=== PATIENT | male | born 1960 | race Caucasian/White ===

== ENCOUNTER → 2016-10-31 | Outpatient (CLI) | payer BC ==
[~2016-10-31] MED LIST: CELEBREX 200 M200 M1 PO; LISINOPRIL10 MG PO; MOBIC7.5 MG PO; NAPROSYN500 MG PO; NORCO 10-325 T1 EACH PO; NORCO 5-325 TA1 EACH PO; NUCYNTA50 MG PO; OXYCODONE HCL15 MG PO
== END ==
LOC: RAD 06:57
DX: M47.814 Spondylosis without myelopathy or radiculopathy, thoracic region (principal); M54.9 Dorsalgia, unspecified; M48.06 Spinal stenosis, lumbar region

== ENCOUNTER → 2017-06-14 | Outpatient (CLI) | payer BC | LOC: CAT 09:53 | DX: J32.0 Chronic maxillary sinusitis (principal); J32.1 Chronic frontal sinusitis; J32.3 Chronic sphenoidal sinusitis ==

== ENCOUNTER → 2017-11-09 | Outpatient (CLI) | payer BC ==
[~2017-11-09] VITALS: Ht 180.3 cm; Wt 77.9 kg
[~2017-11-09] MED LIST changes: +ATORVASTATIN CA40 MG PO; +CYMBALTA30 MG PO; +METHADONE HCL5 MG PO; +OXYCODONE HCL10 MG PO; +VITAMIN B-12500 MCG PO; +VITAMIN E400 UNIT PO; +VITAMINC500 PO
--- NOTE | ~2017-11-09 | HPC ---
[facility] [place] [address] PAIN MANAGEMENT CONSULTATION Name: CHRISTEL JAEGER Room #: REG [facility] Rachell.#: [id number] Admission: 11/09/17 Attend Phys: Josef Garcia DO Discharge: Date of : 58 Report #: [id number] THIS REPORT FOR: //name// CC: Matt Garcia The patient is a very pleasant 57-year-old gentleman, prior seen in the pain clinic 09/10/2015. The patient was somewhat lost to follow up. At that time, we had diagnosed the patient with symptomatic axial back pain, lumbar radiculopathy, component of lumbar spondylosis without myelopathy, requiring complex medication management. He has been habituated fairly high dose opiates, oxycodone 20 mg up to 5 a day. I recommended rotation to methadone and wean. He returns to pain clinic today. He has been followed by Dr. Estrada España. He has been well managed, has weaned down to methadone 5 mg typically 1 tablet in the morning and rarely 2, oxycodone 10 mg IR typically at bedtime. He was referred back for consideration for any further interventions or medication management, which may help. The patient again notes pain is twofold, consistent belt line pain, exacerbated with standing, walking, with axial loading, episodic radicular pain, which is relatively nominal with occasional spasm in his foot and leg, mostly noted at bedtime. Second pain is mid back pain, which is described as a "stiff" sensation. States stretching helps some. 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 Notes pain seems to be exacerbated with this. The patient rates pain as 3 on a VAS. It seemed to be worse throughout the day. He has tried muscle relaxants in the past, but these unfortunately caused untoward sedation. Did seek chiropractic help, but this seemed to exacerbate symptoms. REVIEW OF SYSTEMS: Complete review of systems was again reviewed. Medication list was reconciled. Generally healthy gentleman, treated for hypertension with lisinopril. Does have occasional gastroesophageal reflux. Otherwise, 12-point review of systems is noncontributory (negative). PHYSICAL EXAMINATION: Shows 180 cm, 78 kilogram gentleman with a BMI of 24 kilograms per meter squared. Blood pressure is 134/93, pulse 75, respiration 16. Alert and oriented to person, place and time, judged to be a reasonable historian. Upper extremity strength is generally symmetric, rises from chair using armrest. Diffuse tenderness noted in the thoracic area, actually around the T6-T8 area at the inferior aspect of the scapula. Muscle spasms noted in the thoracic paravertebral muscles. No discrete trigger points are noted. Gait [facility] [address] [place] [address] PAIN MANAGEMENT CONSULTATION Name: CHRISTEL JAEGER Room #: REG CLMaxi Maldonado#: [id number] Admission: 11/09/17 Attend Phys: Josef Garcia DO Discharge: Date of : 58 Report #: [id number] is mildly antalgic. He is able to walk on his toes and heels. Lower extremity strength is generally symmetric, about 4/5 to all muscle groups tested. Patellar and Achilles reflexes are preserved. Straight leg raise negative. Diffuse tenderness across the low back in the L5 area. SI joints are unremarkable. Bienvenido test is negative. Rotation sidebending of the lumbar spine is limited, although flexion is good about 90 degrees. There are no recent diagnostic studies available for evaluation at this time. ASSESSMENT: Axial back pain, component of lumbar and lumbosacral spondylosis without myelopathy. Primary concern for myofascial pain in the thoracic area requiring complex medication management. RECOMMENDATIONS: 1. Continue current use of methadone 5 mg 1-2 and oxycodone immediate release 10 mg at bedtime. He is appropriately managed by Dr. Estrada España. 2. Given myofascial pain component, we talked about starting an SSRI/norepinephrine reuptake inhibitor. To this end, I wrote for 30 days of Cymbalta at 30 mg. Four week release prescription for Cymbalta 30 mg b.i.d. Will follow up in 2 months for reevaluation. Refer to physical therapy for home exercises, stretching exercises (trisha chi ?) for daily use. 3. Thoracolumbar x-rays today. We will review those findings within 2 months. Thank you for allowing me to participate in the patient's care. Will follow up in 2 months and I will keep you abreast of his progress. Discharged in good stable condition after approximately 35-minute visit was spent counseling the patient, reviewing interval health history. <ELECTRONICALLY SIGNED> By: Josef Garcia DO 11/10/17 0944 [id number] Josef Garcia DO /nt
[2017-11-09 09:55] VITALS: BP 134/93
== END ==
LOC: PAIN 11-06 06:06
DX: M47.897 Other spondylosis, lumbosacral region (principal); M54.6 Pain in thoracic spine; Z79.899 Other long term (current) drug therapy

== ENCOUNTER → 2017-11-24 | Outpatient (CLI) | payer BC | LOC: RAD 07:03 | DX: M47.894 Other spondylosis, thoracic region (principal); M48.07 Spinal stenosis, lumbosacral region; M51.34 Other intervertebral disc degeneration, thoracic region ==

== ENCOUNTER 2017-12-01 03:31 | Emergency (ER) | payer BC ==
[~2017-12-01] VITALS: Ht 180.3 cm; Wt 78.0 kg
--- NOTE | ~2017-12-01 | EKG ---
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 : 1960 Requested By: Helga Patricio Order Number: [id number] MD: Lorenzo Bassett Measurements Intervals [place] Rate: 86 P: 45 [place]: 164 QRS: 58 QRSD: 104 T: 39 QT: 355 QTc: 425 Interpretive Statements Sinus rhythm Minimal ST elevation, consider early repolarization Compared to ECG 01/15/2008 05:13:24 No significant change was found Electronically Signed On 12-01-2017 17:22:45 CDT by Lorenzo Bassett [email or web address] <ELECTRONICALLY SIGNED> By: Lorenzo Bassett MD, [facility] 12/01/17 1722 6 6 Lorenzo Bassett MD, FACC /EPI
[2017-12-01 04:17] LABS: ABSOLUTE NEUTROPHILS 2.1 thou/uL (1.4-8.2); BASOPHILS 1.7 % (0.0-2.0); EOSINOPHILS 8.4 % (0.0-3.0); HEMATOCRIT 41.5 % (42.0-52.0); HEMOGLOBIN 14.4 gm/dL (14.0-18.0); LYMPHOCYTES 34.2 % (24.0-44.0); MCHC 34.6 g/dL (28.0-37.0); MCV 92.6 fL (80.0-100.0); MONOCYTES 11.5 % (1.0-8.0); PLATELET COUNT 265 thou/uL (150-400); POLYS 44.2 % (36.0-66.0); RBC 4.48 mil/uL (4.50-6.00); RDW 12.5 % (10.5-14.5); WBC 4.8 thou/uL (4.0-11.0)
[2017-12-01 04:20] LABS: ANION GAP 8 mmol/L (7-16); BUN 7 mg/dL (7-18); CALCIUM 9.2 mg/dL (8.5-10.1); CHLORIDE 101 mmol/L (98-107); CO2 26 mmol/L (21-32); CREATININE 0.8 mg/dL (0.7-1.3); GLUCOSE 96 mg/dL (74-106); POTASSIUM 4.2 mmol/L (3.5-5.1); SODIUM 135 mmol/L (136-145)
[2017-12-01 04:28] LABS: TROPONIN-I < 0.04 ng/mL (<0.06)
== END 2017-12-01 04:54 | disposition home or self-care (01) ==
LOC: ER 03:31
PROVIDERS: Emergency Medicine
DX: R04.0 Epistaxis (principal); R07.9 Chest pain, unspecified

== ENCOUNTER 2018-12-11 09:19 | Emergency (ER) | payer BC, OTHER ==
[~2018-12-11] VITALS: Ht 180.3 cm; Wt 72.6 kg
[~2018-12-11 09:19] MED LIST changes: +INDOMETHACIN 5050 M1 PO; +VITAMIN D1000 UNI1 PO
[2018-12-11 09:55] LABS: ABSOLUTE NEUTROPHILS 3.7 thou/uL (1.4-8.2); BASOPHILS 0.7 % (0.0-2.0); EOSINOPHILS 0.4 % (0.0-3.0); HEMATOCRIT 43.5 % (42.0-52.0); HEMOGLOBIN 14.9 gm/dL (14.0-18.0); LYMPHOCYTES 13.9 % (24.0-44.0); MCH 31.8 pg (26.0-34.0); MCHC 34.3 g/dL (28.0-37.0); MCV 92.6 fL (80.0-100.0); PLATELET COUNT 173 thou/uL (150-400); RDW 12.7 % (10.5-14.5); WBC 4.8 thou/uL (4.0-11.0)
[2018-12-11 09:59] LABS: CALCIUM 9.7 mg/dL (8.5-10.1); CREATININE 0.8 mg/dL (0.7-1.3); MAGNESIUM 1.7 mg/dL (1.8-2.4); POTASSIUM 3.6 mmol/L (3.5-5.1)
[2018-12-11] MEDS ORDERED: ZOFRAN ODT4 MG PO (10:36)
[2018-12-11 10:50] VITALS: BP 141/85
== END 2018-12-11 10:50 | disposition home or self-care (01) ==
LOC: ER 09:19
PROVIDERS: Emergency Medicine
DX: R25.1 Tremor, unspecified (principal); R11.0 Nausea; I10 Essential (primary) hypertension; E78.00 Pure hypercholesterolemia, unspecified; E78.5 Hyperlipidemia, unspecified; F17.210 Nicotine dependence, cigarettes, uncomplicated

== ENCOUNTER 2020-07-01 07:35 | Inpatient (IN) | payer OTHER ==
[~2020-07-01] VITALS: Ht 180.3 cm; Wt 83.5 kg
[2020-07-01] VITALS (7 sets, daily range): BP systolic 118–147; BP diastolic 71–89
[~2020-07-01 07:35] MED LIST changes: +ZOFRAN ODT4 MG PO
[2020-07-01] MEDS ORDERED: ZENPEP DR 10,01 EACH PO (08:07)
[2020-07-01] MEDS ORDERED: PROTONIX40 M2 PO (08:07)
[2020-07-01] MEDS ORDERED: PAROXETINE HCL10 MG PO (08:08)
[2020-07-01 08:11] LABS: HEMATOCRIT 36.9 % (42.0-52.0); HEMOGLOBIN 12.2 gm/dL (14.0-18.0); MCH 36.5 pg (26.0-34.0); MCHC 33.2 g/dL (28.0-37.0); MCV 109.9 fL (80.0-100.0); PLATELET COUNT 147 thou/uL (150-400); RBC 3.35 mil/uL (4.50-6.00); WBC 4.4 thou/uL (4.0-11.0)
--- NOTE | 2020-07-01 08:11 | EKG ---
[facility] [address] [address] [place] [address] ELECTROCARDIOGRAM REPORT Name: CHRISTEL JAEGER Room #: PRE [facility]..#: [id number] Admission: Attend Phys: Discharge: Date of : 58 Report #: [id number] THIS REPORT FOR: cc: Matt España MD, Stanley P. 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
[2020-07-01 08:20] LABS: ANION GAP 6 mmol/L (7-16); BUN 3 mg/dL (7-18); CALCIUM 8.6 mg/dL (8.5-10.1); CHLORIDE 102 mmol/L (98-107); CO2 27 mmol/L (21-32); CREATININE 0.9 mg/dL (0.7-1.3); GLUCOSE 130 mg/dL (74-106); POTASSIUM 3.8 mmol/L (3.5-5.1); SODIUM 135 mmol/L (136-145)
[2020-07-01 08:26] LABS: APTT 26.2 Seconds (24.5-32.8); D-DIMER 2.91 ug/mLFEU (0.19-0.50); INR 1.2; PROTIME 12.2 Seconds (9.3-11.4)
[2020-07-01 08:29] LABS: ALBUMIN 2.2 g/dL (3.4-5.0); MAGNESIUM 1.9 mg/dL (1.8-2.4); SGOT 135 U/L (15-37); SGPT 63 U/L (30-65); TOTAL PROTEIN 6.3 g/dL (6.4-8.2); TROPONIN-I <0.06 ng/mL (<0.06)
[2020-07-01 09:42] LABS: ABSOLUTE NEUTROPHILS 3.3 thou/uL (1.4-8.2); ANISOCYTOSIS SLIGHT; MACROCYTES 1+; PLATELET ESTIMATE NORMAL
[2020-07-01 13:39] LABS: % SATURATION 30 % (20-39); IRON 34 ug/dL (65-175); TIBC 115 ug/dL (250-450)
--- NOTE | 2020-07-01 13:53 | NUR ---
Chart reviewed and case discussed with the care team. Pt admited per his pcp, Dr. Millan recommendation and recent lab work. GI workup in progress for anasarca/alcoholic hepatitis. The lives with family and was working and indep prior to admission. He has health ins on file for followup care. Will provide local resources for ethol tx program in his dc instructions and follow along should dc planning needs arise.
--- NOTE | 2020-07-01 14:42 | 2DMMODE ---
[facility] [place] [address] 2 D/M-MODE ECHOCARDIOGRAM Name: HEIDECHRISTEL DULCE Room #: 205-P ADM IN M.R.#: [id number] Admission: 07/01/20 Attend Phys: Bran Valencia Discharge: Date of : 58 Report #: [id number] THIS REPORT FOR: cc: Matt España MD, Stanley P. MD Santiago, Patrick MD [facility] ~ APPROVED REPORT Study performed: 07/01/2020 13:31:41 EXAM: Comprehensive 2D, Doppler, and color-flow Echocardiogram Patient Location: Bedside Room #: 205 Status: routine BSA: 2.04 HR: 93 bpm BP: 147/89 mmHg Rhythm: NSR Other Information Study Quality: Good Indications ANASARCA. Hx: HTN. 2D Dimensions RVDd: 31.39 mm IVSd: 9.03 (7-11mm) LVOT Diam: 24.31 (18-24mm) LVDd: 52.20 mm PWd: 7.17 (7-11mm) LVDs: 38.75 (25-40mm) Aortic Root: 29.55 mm IVC: 17.00 mm Volumes Left Atrial Volume (Systole) Single Plane 4CH: 30.19 mL Single Plane 2CH: 59.83 mL LA ESV Index: 23.70 mL/m2 Aortic Valve AoV Peak Ralph.: 1.68 m/s AO Peak Gr.: 11.26 mmHg LVOT Max P.43 mmHg LVOT Max V: 1.45 m/s HARPREET Vmax: 4.01 cm2 [facility] [address] [place] [address] 2 D/M-MODE ECHOCARDIOGRAM Name: CHRISTEL JAEGER Room #: 205-P [facility] IN ..#: [id number] Admission: 07/01/20 Attend Phys: Bran Arnold Discharge: Date of : 58 Report #: [id number] Mitral Valve E/A Ratio: 0.8 MV Decel. Time: 163.18 ms MV E Max Ralph.: 0.70 m/s MV A Ralph.: 0.92 m/s MV PHT: 47.32 ms IVRT: 73.82 ms Pulmonary Valve PV Peak Ralph.: 1.38 m/s PV Peak Gr.: 7.60 mmHg Pulmonary Vein P Vein S: 0.66 m/s P Vein A: 0.36 m/s P Vein D: 0.40 m/s P Vein A Dur.: 147.6 msec P Vein S/D Ratio: 1.65 Tricuspid Valve TR Peak Ralph.: 2.19 m/s TR Peak Gr.: 19.13 mmHg PA Pressure: 24.00 mmHg Left Ventricle The left ventricle is normal size. There is normal left ventricular wall thickness. The left ventricular systolic function is normal. LVEF is 55-60%. Grade I - abnormal relaxation pattern. Right Ventricle The right ventricle is normal size. The right ventricular systolic function is normal. Atria The left atrium size is normal. The right atrium size is normal. Aortic Valve The aortic valve is normal in structure. No aortic regurgitation is present. There is no aortic valvular stenosis. Mitral Valve The mitral valve is normal in structure. There is no mitral valve regurgitation noted. No evidence of mitral valve stenosis. Tricuspid Valve The tricuspid valve is normal in structure. Trace tricuspid regurgitation. Estimated PAP 24mmHg. [facility] [employer] [place] [address] 2 D/M-MODE ECHOCARDIOGRAM Name: ISAKATHYNELSONCHRISTEL Room #: 205-P [facility] IN M.R.#: [id number] Admission: 07/01/20 Attend Phys: Bran Arnold Discharge: Date of : 58 Report #: [id number] Pulmonic Valve The pulmonary valve is normal in structure. There is no pulmonic valvular regurgitation. Great Vessels The aortic root is normal in size. The ascending aorta is normal in size. IVC is normal in size and collapses >50% with inspiration. Pericardium There is no pericardial effusion. <Conclusion> Normal left atrial size and the wall thickness Ejection fraction 55% Grade 1 diastolic dysfunction Normal right ventricle size and function No significant valvular dysfunction detected Mild tricuspid valve insufficiency Pulmonary artery systolic pressure estimated at 24 mmHg No pericardial effusion <ELECTRONICALLY SIGNED> By: Blas Batres MD, FACC 11/18/20 144 144 144 Blas Batres MD, FACC /INF
--- NOTE | 2020-07-01 17:16 | NUR ---
ARRIVED FROM ED VIA W/C, ALERT AND ORIENTED, VSS, AND AFEBRILE. POC INITIATED AND WILL CONTINUE TO MONITOR.
[2020-07-02 05:26] VITALS: BP 112/71
--- NOTE | 2020-07-02 05:56 | NUR ---
ASSUMED CARE OF PT FROM DAY SHIFT PT ALERT AND ORIENTED X4 GAIT STEADY SPEECH CLEAR, PAIN MEDICATION GIVEN FOR RIGHT LEG PAIN. CIWA 2 X2 . AFTER 2400 PT FOUND UNSTEADY WITH TREMOR IN BATHROOM URINATING ON THE FLOOR, PT ASSISTED BACK TO BED CIWA 11 BED ALARM ON YELLOW SLIPPERS AND YELLOW ARM PLACED ON. BED ALARM ON FOR SAFETY. CIWA 11 MEDICATION GIVEN PER PROTOCOL. HEART 140'S WHEN UP. PT RESTING AFTER SECOND DOSE OF ATIVAN . WILL CONTINUE TO MONITOR AND REPORT CHANGES.
[2020-07-02 07:09] LABS: HAV IgM AB (ANTI-HAV IgM) Negative (Negative); HEPATITIS B SURFACE AG Negative (Negative); HEPATITIS C VIRUS AB <0.1 (0.0-0.9)
[2020-07-02 07:37] VITALS: BP 117/73
[2020-07-02 11:33] LABS: ALBUMIN 1.9 g/dL (3.4-5.0); DIRECT BILIRUBIN 2.8 mg/dL (<0.1-0.2); TOTAL BILIRUBIN 3.4 mg/dL (0.2-1.0); TOTAL PROTEIN 5.6 g/dL (6.4-8.2)
[2020-07-02 13:35] LABS: CLARITY CLOUDY; COLOR YELLOW; SOURCE ABDOMINAL; TOTAL VOLUME 62 mL
[2020-07-02 13:56] LABS: BF NUCLEATED CELLS 194 /mm3; BF RBC 259 /mm3
[2020-07-02 14:07] LABS: IgG 1245 mg/dL (603-1613)
[2020-07-02 14:10] VITALS: BP 125/72
[2020-07-02 14:51] LABS: BF MACROPHAGE 55 %; BF NEUTROPHILS 20 %
[2020-07-02 15:52] VITALS: BP 137/80
[2020-07-02 20:34] VITALS: BP 162/80
[2020-07-03 04:41] VITALS: BP 124/69
--- NOTE | 2020-07-03 06:18 | NUR ---
pt resting on and off thru the shift c/o of 2 liquid stools, incont on the way to bathroom, vss, no c/o pain, reminded pt we still need urine sample, will con't to monitor per ppoc.
[2020-07-03 06:27] LABS: ALBUMIN 2.1 g/dL (3.4-5.0); AMYLASE 67 U/L (25-115); ANION GAP 9 mmol/L (7-16); BUN 3 mg/dL (7-18); CALCIUM 8.4 mg/dL (8.5-10.1); CHLORIDE 100 mmol/L (98-107); CO2 30 mmol/L (21-32); CREATININE 0.9 mg/dL (0.7-1.3); GLUCOSE 84 mg/dL (74-106); LIPASE 124 U/L (73-393); SGOT 112 U/L (15-37); SGPT < 6 U/L (30-65); SODIUM 139 mmol/L (136-145); TOTAL BILIRUBIN < 0.1 mg/dL (0.2-1.0); TOTAL PROTEIN 5.7 g/dL (6.4-8.2)
[2020-07-03 08:03] VITALS: BP 105/68
[2020-07-03] MEDS ORDERED: LASIX 40 MG TAB40 M1 PO (09:09)
[2020-07-03] MEDS ORDERED: ALDACTONE50 MG PO (09:09)
[2020-07-03 09:14] LABS: SOURCE ABDOMINAL
[2020-07-03] MEDS ORDERED: CHLORDIAZEPOXIDE5 M2 PO (09:16)
[2020-07-03] MEDS ORDERED: MAGNESIUM250 M1 PO (09:19)
[2020-07-03] MEDS ORDERED: COLCHICINE0.6 M1 PO (09:48)
[2020-07-03 10:07] LABS: BODY FLUID ALBUMIN 0.9 g/dL (Not Estab.); BODY FLUID AMYLASE 44 U/L (()); BODY FLUID GLUCOSE 111 mg/dL (()); BODY FLUID LDH 119 IU/L (()); BODY FLUID PROTEIN 1.6 g/dL (())
--- NOTE | 2020-07-03 13:47 | NUR ---
RECEIVED PT'S CARE AROUND 0725; PT. ON BED; RESTING WITH EYES CLOSED; EQUAL CHEST RISING NOTICED; SR ON THE MONITOR; DURING AM ASSESSMENT PT. AOX4; C/O PAIN OVER RLE DUE TO GOUT; SCHEDULED MEDICATION GIVEN; CIWA PROTOCOL PERFORMED; CHECK CHARTING; POTASSIUM AND MAGNESIUM REPLACED; D/C ORDERS ON PLACED; PT. NOTIFIED AND EDUCATED ABOUT D/C PROCESS; ST. UNDERSTANDING; EDUCATED ABOUT FALL PRECAUTIONS; NEEDS TO BE REMAINED; ST ON THE MONITOR DURING AMBULATION; PAGED PHYSICIAN X2; NO CALL BACK; WAITING TECHNICAL SUPPORT 1 SOFTWARE ENGINEER BACK; ASSESSMENT CHARGED; FOLLOWING POC; WILL WORK D/C ORDERS;
[2020-07-03 14:00] VITALS: BP 147/89
[2020-07-03 14:07] LABS: ANA INTERPRETATION Negative (Negative)
[2020-07-03] MEDS ORDERED: CEFUROXIME500 MG PO (14:29)
[2020-07-03 15:45] LABS: URINE BILIRUBIN 1+ (Negative); URINE BLOOD NEGATIVE (Negative); URINE CLARITY CLEAR; URINE COLOR YELLOW; URINE GLUCOSE-RANDOM* NEGATIVE (Negative); URINE KETONES NEGATIVE (Negative); URINE LEUKOCYTES NEGATIVE (Negative); URINE NITRITE NEGATIVE (Negative); URINE PROTEIN (DIPSTICK) NEGATIVE (Negative); URINE UROBILINOGEN 0.2 E.U./dl (0.2-1.0)
[2020-07-03 15:46] LABS: ICTOTEST (BILI CONFIRMATORY) Negative (Negative)
[2020-07-03 15:55] LABS: AMP/METHAMP Negative (Negative); BACTERIA 1-9 Few /HPF (None Seen); BARBITURATES Negative (Negative); BENZODIAZEPINES POSITIVE (Negative); CASTS None Seen /LPF (None Seen); COCAINE Negative (Negative); CRYSTALS None Seen /LPF (None Seen); METHADONE Negative (Negative); OPIATES Negative (Negative); PCP Negative (Negative); SQUAMOUS None Seen /LPF (0-3); URINE RBC None Seen /HPF (0-2); URINE WBC None Seen /HPF (0-5)
[2020-07-03 17:44] VITALS: BP 125/87
[2020-07-03 20:36] VITALS: BP 113/69
[2020-07-03 23:11] VITALS: BP 113/69
[2020-07-04 04:00] VITALS: BP 100/72
[2020-07-04 04:50] VITALS: BP 108/68
--- NOTE | 2020-07-04 05:37 | NUR ---
ASSUMED PT CARE AT THE CHNAGE OF SHIFT, PT IS AWAKE, ALERT AND ORIENTED, SR ON THE MONITOR, ASSESSMENTS CHARTED, VSS, DENIES HAVING CONCERNS, SLEPT WELL, WILL PASS ON REPORT
[2020-07-04 07:30] VITALS: BP 107/63
[2020-07-04] MEDS ORDERED: CARDIZEM CD 18180 M3 PO (08:28)
--- NOTE | 2020-07-04 12:30 | NUR ---
RECEIVED PT'S CARE AROUND 0730; PT. ON BED; AOX4; DURING AM ASSESSMENT NO C/O PAIN; AM MEDICATIONS GIVEN; PER REPORT NO ST DURING THE EVENING DURING EXERTION; D/C ORDERS ON PLACED; PER PHYSICIAN OK TO D/C DURING ROUNDING; SR ON THE MONITOR; ASSESSMENT CHARGED; FOLLOWING POC; WILL WORK ON D/C ORDERS;
[2020-07-04 12:39] VITALS: BP 147/89
--- NOTE | 2020-07-07 11:07 | PATH ---
[facility] [address] [place] [address] PATHOLOGY RPT PROCEDURE Name: CHRISTEL JAEGER Room #: 205-P DIS IN M.R.#: [id number] Admission: 07/01/20 Date of : 58 Discharge: 07/04/20 Report #: [id number] Path Case #: [id number] Note [facility] Accession Number: [id number] TESTS RESULT FLAG UNITS REF RANGE LAB Clinician Provided Cytology Information No. of containers..01 Other (Miscellaneous) Source: 01 N DIAGNOSIS: 02 N NEGATIVE FOR MALIGNANT EPITHELIAL CELLS. MESOTHELIAL CELLS ARE PRESENT. THIS INTERPRETATION INCLUDES EVALUATION OF A CELL BLOCK. PAUCICELLULAR SPECIMEN WITH OCCASIONAL MESOTHELIAL CELLS SHOWING REACTIVE AND DEGENERATIVE CHANGES ADMIXED WITH SCATTERED PREDOMINANTLY CHRONIC INFLAMMATORY CELLS, PROTEINACEOUS FLUID AND BLOOD / PERIPHERAL BLOOD ELEMENTS. Pathologist ICD10: 02 R18.8 Signed out by: 02 Yolanda Diop MD, Pathologist NPI- [id number] Performed by: Volodymyr Anaya, Bedspread Seamer ([facility]) Gross description: 01 22ML, YELLOW, 1TP 1CB /LCS 07/03/2020 0751 Local FLAG LEGEND: L-Low Normal,H-High Normal,LL-Alert Low,HH-Alert High <-Panic Low,>-Panic High,A-Abnormal,AA-Critical Abnormal Performed at: [address] [facility] [address] [place] [address] Beau Shen MD, [address] [address] Maryse Ginag MD, Specimen Comment: A courtesy copy of this report has been sent to [phone] Specimen Comment: Report sent to Performed at: [address], [place], [place] [id number] MD Beau Shen MD Phone: [phone]
== END 2020-07-04 14:21 | disposition home or self-care (01) | DRG 432 ==
LOC: ER 07:35 → EROBS 10:59 → 2N 10:59
PROVIDERS: Emergency Medicine; Nurse Practitioner; ADMIT Hospitalist; ATTEND Hospitalist
PROC: 0W9G3ZZ Drainage of Peritoneal Cavity, Percutaneous Approach (ICD-10-PCS; principal; 2020-07-02)
DX: K70.11 Alcoholic hepatitis with ascites (principal); E43 Unspecified severe protein-calorie malnutrition; F10.139 Alcohol abuse with withdrawal, unspecified; K70.31 Alcoholic cirrhosis of liver with ascites; F32.9 Major depressive disorder, single episode, unspecified; M10.9 Gout, unspecified; I10 Essential (primary) hypertension; K21.9 Gastro-esophageal reflux disease without esophagitis; E78.00 Pure hypercholesterolemia, unspecified; R60.1 Generalized edema; Y90.9 Presence of alcohol in blood, level not specified; R79.89 Other specified abnormal findings of blood chemistry; K72.90 Hepatic failure, unspecified without coma; K86.89 Other specified diseases of pancreas; D69.6 Thrombocytopenia, unspecified; F17.210 Nicotine dependence, cigarettes, uncomplicated; Z79.899 Other long term (current) drug therapy; Z68.25 Body mass index [BMI] 25.0-25.9, adult
CPT/HCPCS: 10194